=== PATIENT | male | born 1970 | race African-American/Black ===

== ENCOUNTER 2017-12-19 15:35 | Emergency (ER) | payer SELFPAY ==
[2017-12-19 16:22] LABS: #Eosinphils 0.2 thou/uL (0.0-0.7); #Monocytes 0.5 thou/uL (0.11-0.59); #Neutrophils 3.9 thou/uL (1.40-6.50); %Basophils 0.7 % (0.0-1.0); %Eosinophils 2.8 % (0.0-10.0); %Lymphocytes 29.8 % (21.0-51.0); %Monocytes 7.2 % (0.0-10.0); %Neutrophils 59.6 % (42.0-75.0); Hemoglobin 14.9 g/dL (14.0-18.0); Mean Corpuscular HGB CONC 35.5 g/dL (32.0-36.0); Mean Corpuscular Hemoglobin 32.6 pg (27.0-31.0); Mean Platelet Volume 8.2 fL (7.4-10.4); Platelet Count 241 thou/uL (130-400); RBC Distribution Width 11.4 % (11.5-14.5); Red Blood Cell (RBC) Count 4.56 mill/uL (4.70-6.10); White Blood Cell (WBC) Count 6.5 thou/uL (4.8-10.8)
[2017-12-19] MEDS ORDERED: cloNIDine 0.2 MG TAB PO SCH (16:30)
[2017-12-19 16:43] LABS: ALT (SGPT) 19 U/L (8-55); AST (SGOT) 19 U/L (5-34); Albumin 4.3 g/dL (3.5-5.0); Alkaline Phosphatase 65 U/L (40-150); Anion Gap 13 mmol/L (10-20); BUN (Urea Nitrogen) 13 mg/dL (8.9-20.6); Bilirubin, Total 1.4 mg/dL (0.2-1.2); CK (CPK) 278 U/L (30-200); Calc. Creatinine Clearance 0 mL/min (70-130); Calcium 9.3 mg/dL (7.8-10.44); Carbon Dioxide 23 mmol/L (22-29); Chloride 105 mmol/L (98-107); Estimated GFR-MDRD 77; Globulin 3.2 g/dL (2.4-3.5); Glucose 90 mg/dL (70-105); Lipase 17 U/L (8-78); Protein, Total 7.5 g/dL (6.0-8.3); Sodium 137 mmol/L (136-145)
[2017-12-19 16:47] LABS: CKMB 3.1 ng/mL (0-6.6); Troponin I Less than 0.010 ng/mL (< 0.028)
--- NOTE | 2017-12-19 17:14 | CT ---
CT HEAD NONCONTRAST: INDICATIONS: Headache. FINDINGS: The ventricular system is normal in size. There is no acute intracranial hemorrhage, mass effect, or midline shift. The paranasal sinuses are clear, where visualized. IMPRESSION: No acute intracranial abnormalities. POS: [id number]
== END 2017-12-19 17:09 | disposition home or self-care (01) ==
LOC: ERS 15:35
DX: I16.0 Hypertensive urgency (principal); R51 Headache; I10 Essential (primary) hypertension; F17.210 Nicotine dependence, cigarettes, uncomplicated
CPT/HCPCS: 36415; 70450; 80053; 82550; 82553; 83690; 83880; 84484; 85025; 93005

== ENCOUNTER 2020-05-26 13:42 | Emergency (ER) | payer SELFPAY ==
[2020-05-26] MEDS ORDERED: Dexamethasone 10 MG/ML VIAL ONE (15:09)
== END 2020-05-26 15:30 | disposition home or self-care (01) ==
LOC: ERS 13:42
DX: G89.29 Other chronic pain (principal); M54.5 Low back pain; Z79.899 Other long term (current) drug therapy; I10 Essential (primary) hypertension; F17.290 Nicotine dependence, other tobacco product, uncomplicated
CPT/HCPCS: 99281; J1100

== ENCOUNTER 2021-06-12 08:02 | Outpatient (CLI) | payer OTHER | END 2021-06-12 08:03 | disposition home or self-care (01) | LOC: MRI 08:02 | PROVIDERS: ATTEND Nurse Practitioner Family | DX: M47.22 Other spondylosis with radiculopathy, cervical region (principal); M48.02 Spinal stenosis, cervical region; G95.89 Other specified diseases of spinal cord; G95.29 Other cord compression | CPT/HCPCS: 72141 ==

== ENCOUNTER 2021-07-11 14:14 | Outpatient (CLI) | payer OTHER, SELFPAY ==
[2021-07-11 16:16] LABS: Anion Gap 14 mmol/L (10-20); BUN (Urea Nitrogen) 13 mg/dL (8.4-25.7); Calc. Creatinine Clearance 0 mL/min (70-130); Calcium 9.5 mg/dL (7.8-10.44); Carbon Dioxide 26 mmol/L (22-29); Chloride 104 mmol/L (98-107); Glucose 107 mg/dL (70-105); Potassium 4.8 mmol/L (3.5-5.1); Sodium 139 mmol/L (136-145)
[2021-07-12 00:17] LABS: SARS-CoV-2 PCR by NAA Not Detected (NotDetected)
== END 2021-07-11 14:15 | disposition home or self-care (01) ==
LOC: LABBT 14:14
PROVIDERS: ATTEND Neurological Surgery
DX: Z01.818 Encounter for other preprocedural examination (principal); M47.12 Other spondylosis with myelopathy, cervical region; M48.02 Spinal stenosis, cervical region; Z20.822 Contact with and (suspected) exposure to COVID-19
CPT/HCPCS: 80048; 93005; 93010; U0003; U0005

== ENCOUNTER 2021-07-16 07:11 | Day surgery (SDC) | payer OTHER ==
[2021-07-10 12:42] VITALS: BMI 28.2
[2021-07-16] MEDS ORDERED: Fentanyl 250 MCG/5 ML VIAL ONE ×2 (09:03→11:04)
[2021-07-16] MEDS ORDERED: Lidocaine 2% Jelly 5 ML TUBE ONE (09:03)
[2021-07-16] MEDS ORDERED: ceFAZolin (BATCH) 2 GM/100 ML BAG ONE ×2 (09:03→13:15)
[2021-07-16] MEDS ORDERED: Ketorolac Tromethamine 30 MG/ML VIAL ONE (09:17)
[2021-07-16] MEDS ORDERED: PROPOFOL 200 MG/20 ML VIAL ONE (09:17)
[2021-07-16] MEDS ORDERED: ePHEDrine 50 MG/ML VIAL ONE (09:17)
[2021-07-16] MEDS ORDERED: Lidocaine 1% PF 5 ML VIAL ONE (09:17)
[2021-07-16] MEDS ORDERED: PHENYLEPHRINE-NS 100 MCG/ML 10 ML SYRINGE ONE (09:17)
[2021-07-16] MEDS ORDERED: Ondansetron PF 4 MG/2 ML Vial ONE (09:17)
[2021-07-16] MEDS ORDERED: Dexamethasone 20 MG/5 ML VIAL ONE (09:17)
[2021-07-16] MEDS ORDERED: Glycopyrrolate 0.2 MG/ML 5 ML SYRINGE ONE (09:17)
[2021-07-16] MEDS ORDERED: Rocuronium Bromide 10 MG/ML (10ML VIAL) ONE (09:17)
[2021-07-16] MEDS ORDERED: SUGAMMADEX SODIUM 200 MG/2 ML VIAL ONE (10:29)
[2021-07-16] MEDS ORDERED: HYDROcodone/Acetaminophen 5/325 mg Tablet ONE (12:20)
== END 2021-07-16 14:25 | disposition home or self-care (01) ==
LOC: SDC 07:11
PROVIDERS: ATTEND Neurological Surgery
PROC: 0RG10A0 Fusion of Cervical Vertebral Joint with Interbody Fusion Device, Anterior Approach, Anterior Column, Open Approach (ICD-10-PCS; principal; 2021-07-16)
DX: M48.02 Spinal stenosis, cervical region (principal); M47.12 Other spondylosis with myelopathy, cervical region; M47.22 Other spondylosis with radiculopathy, cervical region; G89.4 Chronic pain syndrome; I10 Essential (primary) hypertension; F17.200 Nicotine dependence, unspecified, uncomplicated; Z79.899 Other long term (current) drug therapy
CPT/HCPCS: 76000; C1713; C1776; J0690; J1100; J1885; J2405; J2704; J3010; J3490

== ENCOUNTER 2022-01-02 08:22 | Outpatient (CLI) | payer OTHER | END 2022-01-02 08:23 | disposition home or self-care (01) | LOC: MRI 08:22 | PROVIDERS: ATTEND Nurse Practitioner Family | DX: M51.16 Intervertebral disc disorders with radiculopathy, lumbar region (principal); M48.061 Spinal stenosis, lumbar region without neurogenic claudication; M51.17 Intervertebral disc disorders with radiculopathy, lumbosacral region; M48.07 Spinal stenosis, lumbosacral region; M47.26 Other spondylosis with radiculopathy, lumbar region | CPT/HCPCS: 72148 ==

== ENCOUNTER 2022-09-01 15:07 | Emergency (ER) | payer OTHER, SELFPAY ==
[2022-09-01] MEDS ORDERED: Morphine 4 MG/ML VIAL ONE (20:14)
[2022-09-01] MEDS ORDERED: Ketorolac Tromethamine 30 MG/ML VIAL ONE (20:14)
== END 2022-09-01 22:25 | disposition home or self-care (01) ==
LOC: ERS 15:07
DX: M54.42 Lumbago with sciatica, left side (principal); I10 Essential (primary) hypertension; F17.290 Nicotine dependence, other tobacco product, uncomplicated; Z79.899 Other long term (current) drug therapy
CPT/HCPCS: 96372; 99283; J1885; J2270

== ENCOUNTER 2022-09-02 13:04 | Inpatient (IN) | payer SELFPAY ==
[2022-09-02] MEDS ORDERED: Morphine 4 MG/ML VIAL ONE ×4 (13:43→18:55)
[2022-09-02] MEDS ORDERED: hydrALAZINE 20 MG/ML VIAL ONE (14:06)
[2022-09-02] MEDS ORDERED: Dexamethasone 10 MG/ML VIAL ONE (15:05)
[2022-09-02] MEDS ORDERED: Labetalol HCl 100 MG/20 ML VIAL ONE (15:51)
[2022-09-02] MEDS ORDERED: Acetaminophen 325 MG TAB PO PRN (18:40)
[2022-09-02] MEDS ORDERED: Ondansetron ODT 4 MG TAB PO PRN (18:40)
[2022-09-02] MEDS ORDERED: NIFEdipine 10 MG CAP PO SCH (18:45)
[2022-09-02 18:53] LABS: #Basophils 0.1 thou/uL (0.0-0.2); #Eosinphils 0.1 thou/uL (0.0-0.7); #Lymphocytes 0.7 thou/uL (1.20-3.40); #Monocytes 0.1 thou/uL (0.11-0.59); #Neutrophils 6.6 thou/uL (1.40-6.50); %Basophils 0.7 % (0.0-1.0); %Eosinophils 0.7 % (0.0-10.0); %Lymphocytes 9.1 % (21.0-51.0); %Monocytes 1.6 % (0.0-10.0); %Neutrophils 87.9 % (42.0-75.0); Hemoglobin 16.1 g/dL (14.0-18.0); Mean Corpuscular HGB CONC 35.2 g/dL (32.0-36.0); Mean Corpuscular Volume 93.7 fl (78.0-98.0); Mean Platelet Volume 8.4 fL (7.4-10.4); Platelet Count 321 10x3/uL (130-400); RBC Distribution Width 12.1 % (11.5-14.5); Red Blood Cell (RBC) Count 4.88 mill/uL (4.70-6.10); White Blood Cell (WBC) Count 7.5 10x3/uL (4.8-10.8)
[2022-09-02] MEDS ORDERED: Cyclobenzaprine 10 MG TAB ONE (18:55)
[2022-09-02] MEDS: Morphine 2 MG/ML VIAL SLOW IVP PRN ×2 (18:57→23:38)
[2022-09-02] MEDS: Cyclobenzaprine 10 MG TAB PO PRN (18:59)
[2022-09-02 19:15] LABS: ALT (SGPT) 23 U/L (8-55); AST (SGOT) 20 U/L (5-34); Alkaline Phosphatase 54 U/L (40-110); Anion Gap 14 mmol/L (10-20); BUN (Urea Nitrogen) 12 mg/dL (8.4-25.7); Bilirubin, Total 0.7 mg/dL (0.2-1.2); Calc. Creatinine Clearance 0 mL/min (70-130); Calcium 9.6 mg/dL (7.8-10.44); Carbon Dioxide 21 mmol/L (22-29); Chloride 105 mmol/L (98-107); Estimated GFR 70; Globulin 2.8 g/dL (2.4-3.5); Glucose 130 mg/dL (70-105); Potassium 4.1 mmol/L (3.5-5.1); Protein, Total 6.8 g/dL (6.0-8.3); Sodium 136 mmol/L (136-145)
[2022-09-02 19:33] LABS: Amphetamine Not Detected (NotDetected); Barbiturates Screen Not Detected (NotDetected); Benzodiazepine Screen Not Detected (NotDetected); Cocaine Metabolite Screen Detected (NotDetected); Methadone Not Detected (NotDetected); Methamphetamine Not Detected (NotDetected); Opiate Screen Detected (NotDetected); Oxycodone Screen Not Detected (NotDetected); Phencyclidine (PCP) Not Detected (NotDetected); THC/Cannabinoid Screen Detected (NotDetected); Tricyclic Screen Not Detected (NotDetected)
[2022-09-02] MEDS ORDERED: traZODone HCl 50 MG TAB ONE (20:32)
[2022-09-02] MEDS: busPIRone HCl 5 MG TAB PO SCH (20:48)
[2022-09-02] MEDS ORDERED: traZODone HCl 50 MG TAB PO SCH (21:00)
[2022-09-02] MEDS ORDERED: Gabapentin 300 MG CAP PO SCH (21:00)
[2022-09-03 00:17] VITALS: BMI 28.6
[2022-09-03 04:21] LABS: #Lymphocytes 1.3 thou/uL (1.20-3.40); #Monocytes 0.4 thou/uL (0.11-0.59); #Neutrophils 8.9 thou/uL (1.40-6.50); %Basophils 0.2 % (0.0-1.0); %Eosinophils 0.3 % (0.0-10.0); %Lymphocytes 11.9 % (21.0-51.0); %Monocytes 3.4 % (0.0-10.0); %Neutrophils 84.2 % (42.0-75.0); Hemoglobin 14.8 g/dL (14.0-18.0); Mean Corpuscular HGB CONC 33.7 g/dL (32.0-36.0); Mean Corpuscular Volume 94.8 fl (78.0-98.0); Mean Platelet Volume 8.5 fL (7.4-10.4); Platelet Count 330 10x3/uL (130-400); RBC Distribution Width 12.2 % (11.5-14.5); Red Blood Cell (RBC) Count 4.64 mill/uL (4.70-6.10); White Blood Cell (WBC) Count 10.6 10x3/uL (4.8-10.8)
[2022-09-03 04:51] LABS: ALT (SGPT) 22 U/L (8-55); AST (SGOT) 15 U/L (5-34); Albumin 3.7 g/dL (3.5-5.0); Alkaline Phosphatase 47 U/L (40-110); Anion Gap 18 mmol/L (10-20); BUN (Urea Nitrogen) 17 mg/dL (8.4-25.7); Bilirubin, Total 0.7 mg/dL (0.2-1.2); Calc. Creatinine Clearance 81 mL/min (70-130); Calcium 9.4 mg/dL (7.8-10.44); Carbon Dioxide 19 mmol/L (22-29); Chloride 102 mmol/L (98-107); Estimated GFR 57; Globulin 2.8 g/dL (2.4-3.5); Glucose 197 mg/dL (70-105); Potassium 4.8 mmol/L (3.5-5.1); Protein, Total 6.5 g/dL (6.0-8.3); Sodium 134 mmol/L (136-145)
[2022-09-03] MEDS ORDERED: FLUoxetine HCl 20 MG CAP PO SCH (09:00)
[2022-09-03] MEDS ORDERED: busPIRone HCl 5 MG TAB PO SCH (09:00)
[2022-09-03] MEDS: Gabapentin 300 MG CAP PO SCH ×3 (09:58→20:28)
[2022-09-03] MEDS: NIFEdipine XL 60 MG TAB PO SCH ×2 (09:58→11:09)
[2022-09-03] MEDS: Famotidine/PF 20 mg/2ml Vial SLOW IVP SCH ×2 (09:59→20:27)
[2022-09-03] MEDS: busPIRone HCl 5 MG TAB PO SCH ×3 (09:59→20:29)
[2022-09-03] MEDS: FLUoxetine HCl 20 MG CAP PO SCH ×2 (09:59→10:20)
[2022-09-03] MEDS: Morphine 2 MG/ML VIAL SLOW IVP PRN ×2 (09:59→14:02)
[2022-09-03] MEDS: hydrALAZINE 20 MG/ML VIAL SLOW IVP PRN (12:03)
[2022-09-03] MEDS: Cyclobenzaprine 10 MG TAB PO PRN (14:03)
[2022-09-03 14:11] LABS: Cardiac Risk 3.7 (Less than 4.5)
[2022-09-03] MEDS: hydrALAZINE 25 MG TAB PO SCH ×2 (15:44→20:28)
[2022-09-03] MEDS ORDERED: Dexamethasone 12 MG in Sodium Chloride 0.9% 50 ML IVPB SCH (16:00)
[2022-09-03] MEDS: traZODone HCl 50 MG TAB PO PRN (20:28)
[2022-09-04] MEDS: Morphine 2 MG/ML VIAL SLOW IVP PRN ×3 (00:06→14:04)
[2022-09-04] MEDS: Cyclobenzaprine 10 MG TAB PO PRN ×3 (00:06→17:52)
[2022-09-04] MEDS ORDERED: Dexamethasone 4 MG TAB PO SCH (08:00)
[2022-09-04 08:22] LABS: Anion Gap 13 mmol/L (10-20); BUN (Urea Nitrogen) 25 mg/dL (8.4-25.7); Calc. Creatinine Clearance 82 mL/min (70-130); Calcium 9.4 mg/dL (7.8-10.44); Carbon Dioxide 24 mmol/L (22-29); Chloride 107 mmol/L (98-107); Estimated GFR 59; Glucose 114 mg/dL (70-105); Potassium 5.9 mmol/L (3.5-5.1); Sodium 138 mmol/L (136-145)
[2022-09-04] MEDS: FLUoxetine HCl 20 MG CAP PO SCH (08:41)
[2022-09-04] MEDS: hydrALAZINE 25 MG TAB PO SCH ×3 (08:41→22:00)
[2022-09-04] MEDS: NIFEdipine XL 60 MG TAB PO SCH (08:41)
[2022-09-04] MEDS: busPIRone HCl 5 MG TAB PO SCH ×2 (08:42→22:00)
[2022-09-04] MEDS: Famotidine/PF 20 mg/2ml Vial SLOW IVP SCH ×2 (08:42→22:00)
[2022-09-04] MEDS: Gabapentin 300 MG CAP PO SCH ×3 (08:42→21:59)
[2022-09-04] MEDS: Sodium Chloride 0.9% 1,000 ML IV SCH (14:02)
[2022-09-04] MEDS ORDERED: Dexamethasone 4 mg/ml Vial SLOW IVP SCH (17:00)
[2022-09-04] MEDS: Atorvastatin Calcium 10 MG TAB PO SCH (22:00)
[2022-09-04] MEDS: traZODone HCl 50 MG TAB PO PRN (22:01)
[2022-09-05] MEDS: Morphine 2 MG/ML VIAL SLOW IVP PRN ×4 (00:25→21:12)
[2022-09-05] MEDS: Labetalol HCl 100 MG/20 ML VIAL SLOW IVP PRN (00:25)
[2022-09-05] MEDS: Sodium Chloride 0.9% 1,000 ML IV SCH ×2 (00:28→14:40)
[2022-09-05] MEDS: Cyclobenzaprine 10 MG TAB PO PRN (03:00)
[2022-09-05] MEDS: hydrALAZINE 20 MG/ML VIAL SLOW IVP PRN ×2 (03:55→05:17)
[2022-09-05] MEDS ORDERED: Dexamethasone 10 MG in Sodium Chloride 0.9% 50 ML IVPB SCH (09:00)
[2022-09-05] MEDS: busPIRone HCl 5 MG TAB PO SCH ×2 (09:01→21:18)
[2022-09-05] MEDS: Dexamethasone 10 MG/ML VIAL SLOW IVP SCH (09:01)
[2022-09-05] MEDS: Famotidine/PF 20 mg/2ml Vial SLOW IVP SCH ×2 (09:02→21:11)
[2022-09-05] MEDS: FLUoxetine HCl 20 MG CAP PO SCH (09:02)
[2022-09-05] MEDS: Gabapentin 300 MG CAP PO SCH ×3 (09:03→21:15)
[2022-09-05] MEDS: NIFEdipine XL 60 MG TAB PO SCH (09:03)
[2022-09-05] MEDS: hydrALAZINE 25 MG TAB PO SCH ×3 (09:03→21:15)
[2022-09-05 10:15] LABS: Anion Gap 13 mmol/L (10-20); BUN (Urea Nitrogen) 27 mg/dL (8.4-25.7); Calc. Creatinine Clearance 102 mL/min (70-130); Carbon Dioxide 21 mmol/L (22-29); Chloride 106 mmol/L (98-107); Estimated GFR 74; Glucose 160 mg/dL (70-105); Potassium 4.5 mmol/L (3.5-5.1); Sodium 135 mmol/L (136-145)
[2022-09-05] MEDS: HYDROcodone/Acetaminophen 5/325 mg Tablet PO PRN (16:03)
[2022-09-05] MEDS: Atorvastatin Calcium 10 MG TAB PO SCH (21:15)
[2022-09-05] MEDS: traZODone HCl 50 MG TAB PO PRN (21:34)
[2022-09-06] MEDS: Cyclobenzaprine 10 MG TAB PO PRN ×2 (03:05→14:34)
[2022-09-06] MEDS: HYDROcodone/Acetaminophen 5/325 mg Tablet PO PRN ×3 (04:42→18:09)
[2022-09-06 05:20] LABS: Anion Gap 13 mmol/L (10-20); BUN (Urea Nitrogen) 25 mg/dL (8.4-25.7); Calc. Creatinine Clearance 110 mL/min (70-130); Calcium 8.7 mg/dL (7.8-10.44); Carbon Dioxide 20 mmol/L (22-29); Chloride 106 mmol/L (98-107); Estimated GFR 82; Glucose 189 mg/dL (70-105); Potassium 4.7 mmol/L (3.5-5.1); Sodium 134 mmol/L (136-145)
[2022-09-06] MEDS: Sodium Chloride 0.9% 1,000 ML IV SCH (07:34)
[2022-09-06] MEDS: Morphine 2 MG/ML VIAL SLOW IVP PRN (09:45)
[2022-09-06] MEDS: NIFEdipine XL 60 MG TAB PO SCH (09:51)
[2022-09-06] MEDS: hydrALAZINE 25 MG TAB PO SCH ×2 (09:51→14:34)
[2022-09-06] MEDS: Dexamethasone 10 MG/ML VIAL SLOW IVP SCH (09:51)
[2022-09-06] MEDS: FLUoxetine HCl 20 MG CAP PO SCH (09:51)
[2022-09-06] MEDS: Famotidine/PF 20 mg/2ml Vial SLOW IVP SCH (09:51)
[2022-09-06] MEDS: Gabapentin 300 MG CAP PO SCH ×2 (09:52→14:33)
[2022-09-06] MEDS: busPIRone HCl 5 MG TAB PO SCH (09:52)
[2022-09-06] MEDS ORDERED: Lidocaine 4% Patch TD SCH ×2 (11:15→11:30)
[2022-09-06] MEDS: Labetalol HCl 100 MG/20 ML VIAL SLOW IVP PRN (12:05)
[2022-09-06 12:15] VITALS: BP 195/110; TEMP 98.7
[2022-09-06] MEDS ORDERED: Transdermal Patch Removal TOP SCH (21:00)
[2022-09-07] MEDS ORDERED: Lidocaine 4% Patch TD SCH (09:00)
== END 2022-09-06 19:08 | disposition home or self-care (01) | DRG 552 ==
LOC: ERS 13:04 → INTOOBSV 18:24 → ERHOLD 18:24 → IMCU/EMU 22:28 → OBSVTOIN 09-03 00:17 → 2NO 09-04 18:33
PROVIDERS: ADMIT Internal Medicine; ATTEND Internal Medicine
DX: M48.061 Spinal stenosis, lumbar region without neurogenic claudication (principal); E87.20 Acidosis, unspecified; N17.9 Acute kidney failure, unspecified; G89.29 Other chronic pain; F17.210 Nicotine dependence, cigarettes, uncomplicated; M51.36 Other intervertebral disc degeneration, lumbar region; I16.0 Hypertensive urgency; I10 Essential (primary) hypertension; F19.10 Other psychoactive substance abuse, uncomplicated; F39 Unspecified mood [affective] disorder; F14.10 Cocaine abuse, uncomplicated; Z71.51 Drug abuse counseling and surveillance of drug abuser; Z82.49 Family history of ischemic heart disease and other diseases of the circulatory system; Z79.899 Other long term (current) drug therapy; Z98.1 Arthrodesis status; Z98.890 Other specified postprocedural states; Z82.3 Family history of stroke; Z83.49 Family history of other endocrine, nutritional and metabolic diseases
CPT/HCPCS: 36415; 72148; 80048; 80053; 80061; 80306; 84443; 85025; 93005; 93010; 93306; 96374; 96375; 96376; G0378; J0360; J1100; J1650; J2270; J2272; J7050; J8540; S0028